=== PATIENT | male | born 1985 | race Caucasian/White ===

== ENCOUNTER 2017-12-04 07:12 | Emergency (ER) | payer SELFPAY ==
[~2017-12-04] VITALS: Ht 177.8 cm; Wt 88.0 kg
[2017-12-04 07:17] VITALS: Ht 177.8 cm; Wt 88.0 kg
[2017-12-04 07:48] VITALS: BP 140/88
== END 2017-12-04 07:48 | disposition home or self-care (01) ==
LOC: ED 07:12
DX: M54.5 Low back pain (principal)